=== PATIENT | male | born 1960 | race Caucasian/White ===

== ENCOUNTER 2024-07-10 18:20 | Emergency (ER) | payer OTHER ==
[~2024-07-10] VITALS: Ht 172.7 cm; Wt 95.0 kg
[2024-07-10 18:34] VITALS: O2SAT 98
[2024-07-10 18:45] VITALS: BP 143/69; PULSE 67; RESP 18; TEMP 36.78072; O2SAT 98
[2024-07-10 20:46] LABS: BASOPHILS % 0.2 % (0.0-2.0); EOSINOPHILS % 0.3 % (0.0-5.0); HEMATOCRIT. 43.9 % (42.0-52.0); HEMOGLOBIN. 14.8 g/dL (14.0-18.0); LYMPHOCYTES % 28.9 % (20.0-50.0); MEAN CORPUSCULAR HEMOGLOBIN 30.6 pg (28.0-32.0); MEAN CORPUSCULAR HGB CONC 33.8 g/dL (31.0-37.0); MEAN CORPUSCULAR VOLUME 90.4 fL (80.0-94.0); MEAN PLATELET VOLUME 6.6 fl (7.4-10.4); MONOCYTES % 12.7 % (2.0-8.0); NEUTROPHILS % 57.9 % (40.0-76.0); PLATELET 268 x1000/uL (130-400); RED BLOOD CELL COUNT 4.86 mill/uL (4.7-6.1); RED CELL DISTRIBUTION WIDTH 13.9 % (11.6-14.6)
[2024-07-10 20:47] LABS: CHLORIDE 104 mEq/L (98-107); POTASSIUM 4.7 mEq/L (3.5-5.1); SODIUM 136 mEq/L (136-145)
[2024-07-10 20:48] LABS: CARBON DIOXIDE 29 mEq/L (21-32)
[2024-07-10 20:49] LABS: CALCIUM 8.8 mg/dL (8.7-10.4)
[2024-07-10 20:53] LABS: GLUCOSE 117 mg/dL (70-105)
[2024-07-10 20:54] LABS: TROPONIN I HIGH SENSITIVITY 4 ng/L (3.0-53); UREA NITROGEN BLOOD 15 mg/dL (9-23)
== END 2024-07-10 22:50 | disposition home or self-care (01) ==
LOC: ER 18:20
DX: B34.9 Viral infection, unspecified (principal); R07.89 Other chest pain; Z98.890 Other specified postprocedural states; Z96.659 Presence of unspecified artificial knee joint
CPT/HCPCS: 36415; 71045; 80048; 84484; 85025; 93005; 99285

== ENCOUNTER 2024-07-11 18:12 | Emergency (ER) | payer MEDICARE, OTHER ==
[~2024-07-11] VITALS: Ht 162.6 cm; Wt 89.8 kg
[2024-07-11 20:46] VITALS: PULSE 80; RESP 18; O2SAT 96
[2024-07-11] MEDS: ALBUTEROL (0.5%) 2.5MG/0.5ML NEB HHN ONE (20:46)
[2024-07-11 21:14] LABS: BASOPHILS % 0.8 % (0.0-2.0); EOSINOPHILS % 1.5 % (0.0-5.0); HEMATOCRIT. 44.9 % (42.0-52.0); HEMOGLOBIN. 15.3 g/dL (14.0-18.0); LYMPHOCYTES % 43.4 % (20.0-50.0); MEAN CORPUSCULAR HEMOGLOBIN 30.4 pg (28.0-32.0); MEAN CORPUSCULAR VOLUME 89.3 fL (80.0-94.0); MEAN PLATELET VOLUME 6.4 fl (7.4-10.4); MONOCYTES % 11.9 % (2.0-8.0); NEUTROPHILS % 42.4 % (40.0-76.0); PLATELET 283 x1000/uL (130-400); RED BLOOD CELL COUNT 5.03 mill/uL (4.7-6.1); RED CELL DISTRIBUTION WIDTH 13.7 % (11.6-14.6); WHITE BLOOD COUNT 7.2 x1000/uL (4.5-11.0)
[2024-07-11 21:27] LABS: CHLORIDE 104 mEq/L (98-107); POTASSIUM 4.3 mEq/L (3.5-5.1); SODIUM 136 mEq/L (136-145)
[2024-07-11 21:28] LABS: CALCIUM 8.9 mg/dL (8.7-10.4); CARBON DIOXIDE 27 mEq/L (21-32)
[2024-07-11 21:33] LABS: CREATININE 0.9 mg/dL (0.6-1.3); GLUCOSE 114 mg/dL (70-105); UREA NITROGEN BLOOD 12 mg/dL (9-23)
[2024-07-11 21:37] LABS: TROPONIN I HIGH SENSITIVITY < 4 ng/L (3.0-53)
[2024-07-11 22:07] VITALS: BP 138/76; PULSE 74; RESP 19; TEMP 36.83628; O2SAT 98
[2024-07-11] MEDS: DEXAMETHASONE 10 MG/ML VIAL IM ONE (22:07)
== END 2024-07-11 22:09 | disposition home or self-care (01) ==
LOC: ER 18:12
DX: B34.9 Viral infection, unspecified (principal)
CPT/HCPCS: 99285; 71045; 80048; 83880; 85025; 84484; 36415; 94640; 93005; 96372; J1100